=== PATIENT | female | born 1950 | race American Indian/Alaskan Native ===

== ENCOUNTER 2021-09-21 09:54 | Emergency (ER) | payer MEDICARE ==
[2021-09-21] MEDS ORDERED: ONDANSETRON 4 MG/2 ML INJ IV ONE (12:08)
[2021-09-21] MEDS ORDERED: MECLIZINE 25 MG TAB PO ONE (12:08)
--- NOTE | 2021-09-21 12:25 | Emergency Department Report ---
HPI - General Chief Complaint: Weakness Time Seen by Provider: 09/21/21 11:34 - HPI HPI: Room 4 The patient is a 71-year-old female present with a chief complaint of dizziness. The patient states she went to sleep last night in her usual state of health approximately 23: 30 and upon awakening this morning at 06: 30 she felt lightheaded and dizzy. Patient states movement of her head will worsen the symptoms. Patient is to nausea vomiting and then diffuse weakness. Patient denies ever having a headache, chest pain, shortness of breath or palpitations. When asked how she is feeling currently the patient states she still feels diffusely weak with nausea but only slight dizziness currently ED Past Medical Hx - Past Medical History Hx Hypertension: Yes Hx CVA: Yes (Residual right-sided weakness) Hx Diabetes: Yes Hx Renal Disease: Yes (ESRD; HD q MWF) - Surgical History Hx Cholecystectomy: Yes Additional Surgical History: FISTULA LEFT ARM - Family History Family history: no significant - Social History Smoking Status: Current Some Day Smoker (Occasional) Substance Use Type: None (Denies illicit drug use) - Medications Home Medications: Home Medications Medication Instructions Recorded Confirmed Last Taken Type Meclizine [Antivert] 25 mg PO TID PRN #20 09/21/21 Unknown Rx Ondansetron [Zofran ODT TAB] 8 mg PO Q8HR #20 tab.rapdis 09/21/21 Unknown Rx ED Review of Systems ROS: Stated complaint: WEAKNESS AND DIZZINESS Other details as noted in HPI Constitutional: weakness Eyes: denies: eye pain ENT: denies: throat pain Respiratory: denies: shortness of breath Cardiovascular: denies: chest pain, palpitations Endocrine: no symptoms reported Gastrointestinal: nausea, vomiting Musculoskeletal: denies: back pain Neurological: vertigo. denies: headache Physical Exam - Physical Exam Vital Signs: Vital Signs 09/21/21 09/21/21 09/21/21 10:00 11:00 11:04 Temperature 97.7 F Pulse Rate 94 H 92 H Respiratory 18 20 Rate Blood Pressure 147/81 165/80 [Right] O2 Sat by Pulse 99 100 100 Oximetry Physical Exam: GENERAL: The patient is well-developed well-nourished female lying on stretcher not appearing to be in acute distress. [] HEENT: Normocephalic. Atraumatic. Extraocular motions are intact. Patient has moist mucous membranes. No nystagmus NECK: Supple. Trachea midline CHEST/LUNGS: Clear to auscultation. There is no respiratory distress noted. HEART/CARDIOVASCULAR: Regular. There is no tachycardia. There is no gallop rub or murmur. ABDOMEN: Abdomen is soft, nontender. Patient has normal bowel sounds. There is no abdominal distention. SKIN: There is no rash. There is no edema. There is no diaphoresis. NEURO: The patient is awake, alert, and oriented. The patient is cooperative. The patient has no focal neurologic deficits. The patient has normal speech. Cranial nerves II through XII grossly intact with exception of 7 and 11 from previous CVA MUSCULOSKELETAL: There is no evidence of acute injury. ED Course Vital Signs 09/21/21 09/21/21 09/21/21 10:00 11:00 11:04 Temperature 97.7 F Pulse Rate 94 H 92 H Respiratory 18 20 Rate Blood Pressure 147/81 165/80 [Right] O2 Sat by Pulse 99 100 100 Oximetry - Reevaluation(s) Reevaluation #1: 09/21/21 16:10 Patient states she feels improved status post medication. ED Medical Decision Making - Lab Data Result diagrams: 09/21/21 14:12 09/21/21 14:12 - EKG Data -: EKG Interpreted by [place] EKG shows normal: sinus rhythm Rate: normal - EKG Data When compared to previous EKG there are: previous EKG unavailable Interpretation: nonspecific ST-T wave jeanne, LV[facility] - Radiology Data Radiology results: report reviewed (CT head), image reviewed (CT head) [address] [address] Cat Scan Report Signed Patient: GREGG JUNG MR#: [id number] : 1950 Acct:[id number] Age/Sex: 71 / F ADM Date: 09/21/21 Loc: ED Attending Dr: Ordering Physician: VALENTINA COSTELLO MD Date of Service: 09/21/21 Procedure(s): CT head/brain wo con Accession Number(s): [id number] cc: VALENTINA COSTELLO MD CT head/brain wo con INDICATION: Dizziness nausea vomiting. TECHNIQUE: Routine CT head. All CT scans at this location are performed using CT dose reduction for ALARA by means of automated exposure control. COMPARISON: None. FINDINGS: Intracranial: Encephalomalacia in the right occipital lobe. Periventricular and centrum semiovale white matter hypoattenuation most consistent with sequela of chronic microvascular disease. Remote basal ganglia lacunar infarctions. Brooks-white matter differentiation is maintained. No intracranial hemorrhage. No extra axial collection. No hydrocephalus. No herniation. Atherosclerosis of the anterior and posterior circulation. Sinuses: Paranasal sinuses and mastoid air cells are essentially clear. Orbits: Globes are intact. Calvarium: No acute fracture. IMPRESSION: 1. No acute intracranial abnormality. 2. Remote right occipital lobe infarction. Signer Name: Remy Ryan MD Signed: 09/21/2021 12:55 PM Workstation Name: [id number] Transcribed By: CS Dictated By: Remy Ryan MD Electronically Authenticated By: Remy Ryan MD Signed Date/Time: 09/21/21 125 DD/ 1254 TD/TT: Print Cancel - Differential Diagnosis Vertigo, CVA, ICH Critical care attestation.: If time is entered above; I have spent that time in minutes in the direct care of this critically ill patient, excluding procedure time. ED Disposition Clinical Impression: Vertigo, Hypertension Disposition: 01 HOME / SELF CARE / HOMELESS Is pt being admited?: No Does the pt Need Aspirin: No Condition: Stable Instructions: Vertigo, [id number], Hypertension (ED) Additional Instructions: Return to the emergency department should you develop worsening symptoms, inability to tolerate food or liquids, high fever or any other concerns Prescriptions: Meclizine [Antivert] 25 mg PO TID PRN #20 PRN Reason: Vertigo Ondansetron [Zofran ODT TAB] 8 mg PO Q8HR #20 tab.rapdis Referrals: MILENA WALKER MD [Primary Care Provider] - 3-5 Days DARIA GONZALEZ MD [Staff Physician] - 3-5 Days (Dr. Gonzalez is a neurologist. Please follow-up with him for further evaluation) Time of Disposition: 18:35
--- NOTE | 2021-09-21 13:00 | Cat Scan Report ---
CT head/brain wo con INDICATION: Dizziness nausea vomiting. TECHNIQUE: Routine CT head. All CT scans at this location are performed using CT dose reduction for A SAL by means of automated exposure control. COMPARISON: None. FINDINGS: Intracranial: Encephalomalacia in the right occipital lobe. Periventricular and centrum semiovale whi te matter hypoattenuation most consistent with sequela of chronic microvascular disease. Remote basal ganglia lacunar infarctions. Brooks-white matter differentiation is maintained. No intracranial hemorr giovanny. No extra axial collection. No hydrocephalus. No herniation. Atherosclerosis of the anterior and posterior circulation. Sinuses: Paranasal sinuses and mastoid air cells are essentially clear. Orbits: Globes are intact. Calvarium: No acute fracture. IMPRESSION: 1. No acute intracranial abnormality. 2. Remote right occipital lobe infarction. Signer Name: Remy Ryan MD Signed: 09/21/2021 12:55 PM Workstation Name: [id number]
[2021-09-21 14:55] LABS: Calcium 9.2 mg/dL (8.4-10.2)
[2021-09-21 14:56] LABS: Creatine Kinase MB 2.1 ng/mL (0.0-4.0)
[2021-09-21 15:00] LABS: INR 1.03 (0.87-1.13)
[2021-09-21 15:01] LABS: Partial Thromboplastin Time 34.2 Sec. (24.2-36.6)
[2021-09-21 15:07] LABS: Free T4 (Free Thyroxine) 0.89 ng/dL (0.76-1.46)
[2021-09-21 15:22] LABS: Chol/HDL Ratio 1.63 %
[2021-09-21 15:43] LABS: Hematocrit 40.9 % (30.3-42.9); Hemoglobin 12.7 gm/dl (10.1-14.3); Mean Corpuscular HGB Conc 31 % (30-34); Mean Corpuscular Volume 98 fl (79-97); Platelet Count 241 K/mm3 (140-440); Red Blood Count 4.17 M/mm3 (3.65-5.03); Red Cell Distribution Width 17.2 % (13.2-15.2)
[2021-09-21 15:49] LABS: Eosinophils % (Auto) 0.5 % (0.0-4.3); Lymphocytes # (Auto) 1.5 K/mm3 (1.2-5.4); Lymphocytes % (Auto) 24.3 % (13.4-35.0); Monocytes # (Auto) 0.4 K/mm3 (0.0-0.8); Monocytes % (Auto) 5.8 % (0.0-7.3)
[2021-09-21] MEDS ORDERED: traMADol 50 MG TAB PO ONE (15:53)
[2021-09-21 16:05] VITALS: BP 177/77
[2021-09-21] MEDS ORDERED: cloNIDine 0.2 MG TAB PO ONE (16:08)
--- NOTE | 2021-09-22 11:04 | Electrocardiograph Report ---
[facility] Test Date: 2021-09-21 Test Time: 16:16:49 Pat Name: GREGG JUNG Department: Room: Gender: F Customer Trainer: BRYN : 1950 Requested By: VALENTINA COSTELLO Order Number: [id number] Reading MD: Abram Senior Measurements Intervals [place] Rate: 84 P: 54 TN: 150 QRS: 34 QRSD: 96 T: 144 QT: 396 QTc: 469 Interpretive Statements Sinus rhythm LVH with secondary repolarization abnormality No previous ECG available for comparison Electronically Signed On 09-22-2021 11:04:13 EST by Abram Senior
== END 2021-09-22 12:38 | disposition home or self-care (01) ==
LOC: ED 09:54
DX: R42 Dizziness and giddiness (principal); I10 Essential (primary) hypertension; E11.9 Type 2 diabetes mellitus without complications; F17.200 Nicotine dependence, unspecified, uncomplicated; R79.1 Abnormal coagulation profile; Z88.8 Allergy status to other drugs, medicaments and biological substances; Z79.899 Other long term (current) drug therapy
CPT/HCPCS: 36415; 70450; 80048; 80061; 82550; 82553; 84439; 84443; 84484; 85025; 85610; 85730; 93005; 93010; 96374; 99284; J2405